=== PATIENT | male | born 1955 | race Caucasian/White ===

== ENCOUNTER → 2023-05-24 07:42 | Outpatient (REF) | payer MEDICARE, BC, SELFPAY ==
[2023-05-24 10:00] LABS: PSA, Total - Diagnostic 6.76 ng/ml (0.0-4.0)
== END ==
LOC: REG 07:42
PROVIDERS: ATTENDING PHYSICIAN Specialist; FAMILY PHYSICIAN Family Medicine
DX: R97.20 Elevated prostate specific antigen [PSA] (principal)
CPT/HCPCS: 36415; 84153

== ENCOUNTER → 2023-06-29 07:40 | Outpatient (REF) | payer MEDICARE, BC, SELFPAY | LOC: MRI 3T 07:40 | PROVIDERS: ATTENDING PHYSICIAN Specialist; FAMILY PHYSICIAN Family Medicine | DX: R97.20 Elevated prostate specific antigen [PSA] (principal) | CPT/HCPCS: 72197; A9575 ==

== ENCOUNTER → 2023-09-24 11:11 | Outpatient (REF) | payer MEDICARE, BC, SELFPAY | LOC: HWRAD 11:11 | PROVIDERS: ATTENDING PHYSICIAN Specialist; FAMILY PHYSICIAN Family Medicine | DX: N23 Unspecified renal colic (principal) | CPT/HCPCS: 74176 ==

== ENCOUNTER → 2023-09-28 08:30 | Outpatient (REF) | payer MEDICARE, BC, SELFPAY ==
[2023-09-28 10:14] LABS: Blood Urea Nitrogen 17 mg/dl (9-20); Calcium 9.2 mg/dl (8.4-10.2); Carbon Dioxide 24 mmol/L (22-30); Chloride 107 mmol/L (98-107); Glucose 98 mg/dl (70-99); Potassium 4.4 mmol/L (3.5-5.1); Sodium 139 mmol/L (135-145); eGFR > 60.00
== END ==
LOC: HWLAB 08:30
PROVIDERS: ATTENDING PHYSICIAN Specialist; FAMILY PHYSICIAN Family Medicine
DX: N40.1 Benign prostatic hyperplasia with lower urinary tract symptoms (principal)
CPT/HCPCS: 36415; 80048

== ENCOUNTER → 2023-10-18 08:28 | Outpatient (REF) | payer MEDICARE, BC, SELFPAY ==
[2023-10-18 11:48] LABS: Blood Urea Nitrogen 18 mg/dl (9-20); Calcium 9.2 mg/dl (8.4-10.2); Carbon Dioxide 23 mmol/L (22-30); Chloride 107 mmol/L (98-107); Glucose 98 mg/dl (70-99); Potassium 4.6 mmol/L (3.5-5.1); Sodium 139 mmol/L (135-145); eGFR > 60.00
== END ==
LOC: HWLAB 08:28
PROVIDERS: ATTENDING PHYSICIAN Specialist; FAMILY PHYSICIAN Family Medicine
DX: N40.1 Benign prostatic hyperplasia with lower urinary tract symptoms (principal)
CPT/HCPCS: 36415; 80048

== ENCOUNTER → 2023-11-30 08:38 | Outpatient (REF) | payer MEDICARE, BC, SELFPAY ==
[2023-11-30 12:35] LABS: Blood Urea Nitrogen 15 mg/dl (9-20); Calcium 9.5 mg/dl (8.4-10.2); Carbon Dioxide 26 mmol/L (22-30); Chloride 105 mmol/L (98-107); Glucose 100 mg/dl (70-99); Potassium 4.5 mmol/L (3.5-5.1); Sodium 143 mmol/L (135-145); eGFR > 60.00
== END ==
LOC: HWLAB 08:38
PROVIDERS: ATTENDING PHYSICIAN Specialist; FAMILY PHYSICIAN Family Medicine
DX: N40.1 Benign prostatic hyperplasia with lower urinary tract symptoms (principal)
CPT/HCPCS: 36415; 80048

== ENCOUNTER → 2023-12-27 08:57 | Outpatient (REF) | payer MEDICARE, BC, SELFPAY | LOC: HWRAD 08:57 | PROVIDERS: ATTENDING PHYSICIAN Specialist; FAMILY PHYSICIAN Family Medicine | DX: N40.1 Benign prostatic hyperplasia with lower urinary tract symptoms (principal) | CPT/HCPCS: 76770 ==

== ENCOUNTER → 2023-12-31 06:14 | Day surgery (SDC) | payer MEDICARE, BC, SELFPAY | LOC: GI 06:14 | PROVIDERS: ATTENDING PHYSICIAN Internal Medicine Gastroenterology; FAMILY PHYSICIAN Family Medicine | DX: Z12.11 Encounter for screening for malignant neoplasm of colon (principal); D12.3 Benign neoplasm of transverse colon; K63.5 Polyp of colon; K57.30 Diverticulosis of large intestine without perforation or abscess without bleeding; K64.8 Other hemorrhoids | CPT/HCPCS: 45385; 45380; 88305 ==

== ENCOUNTER → 2024-05-24 09:11 | Outpatient (REF) | payer MEDICARE, BC, SELFPAY ==
[2024-05-24 12:56] LABS: Blood Urea Nitrogen 16 mg/dl (9-20); Calcium 9.5 mg/dl (8.4-10.2); Carbon Dioxide 27 mmol/L (22-30); Chloride 103 mmol/L (98-107); Glucose 105 mg/dl (70-99); Potassium 4.6 mmol/L (3.5-5.1); Sodium 138 mmol/L (135-145); eGFR > 60.00
[2024-05-24 13:27] LABS: PSA, Total - Diagnostic 7.03 ng/ml (0.0-4.0)
== END ==
LOC: HWLAB 09:11
PROVIDERS: ATTENDING PHYSICIAN Specialist; FAMILY PHYSICIAN Family Medicine
DX: R97.20 Elevated prostate specific antigen [PSA] (principal)
CPT/HCPCS: 36415; 80048; 84153

== ENCOUNTER → 2024-12-01 07:26 | Outpatient (REF) | payer MEDICARE, BC, SELFPAY ==
[2024-12-01 10:10] LABS: PSA, Total - Diagnostic 6.52 ng/ml (0.0-4.0)
== END ==
LOC: HWLAB 07:26
PROVIDERS: ATTENDING PHYSICIAN Specialist; FAMILY PHYSICIAN Family Medicine
DX: R97.20 Elevated prostate specific antigen [PSA] (principal)
CPT/HCPCS: 36415; 84153

== ENCOUNTER → 2024-12-28 07:51 | Outpatient (REF) | payer MEDICARE, BC, SELFPAY ==
[2024-12-28 09:40] LABS: Hematocrit 46.4 % (39.0-52.0); Hemoglobin 15.2 g/dL (13.0-18.0); Mean Corp Hgb Conc. 32.8 g/dL (33.0-37.0); Mean Corpuscular Volume 89.4 fL (80.0-94.0); Nucleated Red Blood Cells % 0 % (-); Platelet Count 265 10^3/uL (130-400); Red Cell Dist. Width 12.9 % (11.5-14.5)
[2024-12-28 09:42] LABS: Urine Character Clear (Clear)
[2024-12-28 10:50] LABS: ALT (SGPT) 22 U/L (0-50); AST (SGOT) 22 U/L (17-59); Albumin 4.6 g/dl (3.5-5.0); Alkaline Phosphatase 44 U/L (38-126); Blood Urea Nitrogen 18 mg/dl (9-20); Calcium 9.1 mg/dl (8.4-10.2); Carbon Dioxide 26 mmol/L (22-30); Chloride 107 mmol/L (98-107); Glucose 101 mg/dl (70-99); HDL Cholesterol 51 mg/dl; LDL Cholesterol, Calculated 195 mg/dl; Magnesium 2.2 mg/dl (1.6-2.3); Potassium 4.4 mmol/L (3.5-5.1); Sodium 139 mmol/L (135-145); Total Protein 7.0 g/dl (6.3-8.2); Uric Acid 7.3 mg/dl (3.5-8.5); Very Low Density Lipoprotein 27 mg/dl (0-30); eGFR > 60.00
[2024-12-28 12:49] LABS: Vitamin D, 25-OH*** 28.7 ng/mL (30-80)
[2024-12-28 13:03] LABS: TSH 1.80 uIU/ml (0.47-4.68)
[2024-12-28 13:38] LABS: Folate 3.4 ng/ml (2.76-20); Vitamin B12 300 pg/ml (239-931)
== END ==
LOC: HWLAB 07:51
PROVIDERS: ATTENDING PHYSICIAN Family Medicine
DX: Z00.00 Encounter for general adult medical examination without abnormal findings (principal); E78.5 Hyperlipidemia, unspecified; R74.8 Abnormal levels of other serum enzymes; E53.8 Deficiency of other specified B group vitamins; D80.4 Selective deficiency of immunoglobulin M [IgM]; E55.9 Vitamin D deficiency, unspecified
CPT/HCPCS: 36415; 80053; 80061; 81003; 82306; 82550; 82607; 82746; 83735; 84100; 84155; 84165; 84443; 84550; 85025